=== PATIENT | female | born 1995 | race Hispanic/Latino ===

== ENCOUNTER 2019-01-05 14:06 | Emergency (ER) | payer BC, OTHER | END 2019-01-05 16:17 | disposition home or self-care (01) | LOC: ERS 14:06 | DX: O99.512 Diseases of the respiratory system complicating pregnancy, second trimester (principal); J06.9 Acute upper respiratory infection, unspecified; Z3A.21 21 weeks gestation of pregnancy | CPT/HCPCS: 99283 ==

== ENCOUNTER 2020-03-18 20:15 | Emergency (ER) | payer BC, OTHER, SELFPAY ==
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
[2020-03-19] MEDS ORDERED: Ketorolac Tromethamine 30 MG/ML VIAL ONE (00:26)
== END 2020-03-19 00:48 | disposition home or self-care (01) ==
LOC: ERS 20:15
DX: S80.02XA Contusion of left knee, initial encounter (principal); S30.811A Abrasion of abdominal wall, initial encounter; V43.92XA Unspecified car occupant injured in collision with other type car in traffic accident, initial encounter
CPT/HCPCS: 71046; 96372; J1885